=== PATIENT | male | born 1965 | race Caucasian/White ===

== ENCOUNTER 2019-04-01 10:56 | Emergency (ER) | payer OTHER ==
[2019-04-01] MEDS ORDERED: Bacitracin Oint 1 GM U/D Packet TOP ONE (12:39)
--- NOTE | 2019-04-01 12:44 | EDM.PDOC ---
ED HPI GENERAL MEDICAL PROBLEM - General Chief Complaint: Laceration Stated Complaint: LACERATION ON LEFT HAND Time Seen by Provider: 04/01/19 12:40 Source of Information: Reports: Patient History Limitations: Reports: No Limitations - History of Present Illness INITIAL COMMENTS - FREE TEXT/NARRATIVE: pt was opening a can of beans and ended up with a cut in the thumb web of his left hand. He ended up with a 1.25 inches laceration between the thumb and the next finger. Onset: Today, Sudden Duration: Hour(s): Location: Reports: Upper Extremity, Left Associated Symptoms: Reports: No Other Symptoms - Related Data Allergies Allergy/AdvReac Type Severity Reaction Status Date / Time No Known Allergies Allergy Verified 02/29/16 12:46 Home Meds: Home Meds Lisinopril 1 tab PO DAILY 02/29/16 [History] Past Medical History Cardiovascular History: Reports: Hypertension Musculoskeletal History: Reports: Fracture - Past Surgical History HEENT Surgical History: Reports: Tonsillectomy ED ROS GENERAL - Review of Systems Review Of Systems: See Below Constitutional: Reports: No Symptoms HEENT: Reports: No Symptoms Respiratory: Reports: No Symptoms Cardiovascular: Reports: No Symptoms Endocrine: Reports: No Symptoms GI/Abdominal: Reports: No Symptoms : Reports: No Symptoms Musculoskeletal: Reports: Other (laceration between the left thumb and the next finger. ) Skin: Reports: No Symptoms Neurological: Reports: No Symptoms Psychiatric: Reports: No Symptoms ED EXAM, SKIN/RASH Exam: See Below Text/Narrative:: pt arrived with a 1.25 laceration between the left thumb and the next finger. he is not current with his tetanus. Exam Limited By: No Limitations General Appearance: Alert, Anxious, Mild Distress Ears: Normal TMs Nose: Normal Inspection Throat/Mouth: Normal Inspection Head: Atraumatic Neck: Normal Inspection Extremities: Other (pt hs a 1.25 laceration between the left thumb and the next finger. He has normal sensation and normal motion. There is some bleeding. He was given a tetanus booster. ) Neurological: Alert, Oriented, Normal Cognition Course - Vital Signs Last Recorded V/S: Last Vital Signs Temp 35.2 C L 04/01/19 13:06 Pulse 68 04/01/19 13:06 Resp 18 04/01/19 13:06 BP 137/89 04/01/19 13:06 Pulse Ox 95 04/01/19 12:14 - Orders/Labs/Meds Meds: Medications Discontinued Medications Generic Name Dose Route Start Last Admin Trade Name Tanya PRN Reason Stop Dose Admin Bacitracin 1 dose 04/01/19 12:39 04/01/19 12:57 Bacitracin Oint 1 Gm TOP 04/01/19 12:40 1 dose ONETIME ONE Administration Diphtheria/Tetanus/Acell Pertussis 0.5 ml 04/01/19 13:17 04/01/19 13:24 Adacel IM 04/01/19 13:18 0.5 ml .ONCE ONE Administration Lidocaine HCl 5 ml 04/01/19 12:39 04/01/19 12:57 Xylocaine-Mpf 1% INJECT 04/01/19 12:40 5 ml ONETIME ONE Administration - Re-Assessments/Exams Free Text/Narrative Re-Assessment/Exam: 04/01/19 13:39 The wound was cleansed well and infiltrated with lidocaine. It was closed with 6-0 prolene. Bacatracin was applied and a pressure dressing was applied. He was given tetanus --tdap. Departure - Departure Time of Disposition: 13:15 Disposition: Home, Self-Care 01 Condition: Fair Clinical Impression: Laceration - Discharge Information Instructions: Laceration Care, Adult, [id number] Referrals: PCP,None [Primary Care Provider] - Forms: ED Department Discharge Care Plan Goals: leave pressure dressing on until tomorrow am then cover with a liter dry dressing. No further ointments, keep dry, suture removal in 7-8 days.
[2019-04-01 13:10] VITALS: BP 137/89; PULSE 68
[2019-04-01] MEDS ORDERED: Diphtheria,Pertussis(Acell),Tetanus Vaccine 0.5 ML SDV IM ONE (13:17)
== END 2019-04-01 13:43 | disposition home or self-care (01) ==
LOC: JP.ED 10:56
DX: S61.412A Laceration without foreign body of left hand, initial encounter (principal); W26.8XXA Contact with other sharp object(s), not elsewhere classified, initial encounter; Z23 Encounter for immunization; I10 Essential (primary) hypertension; Z79.899 Other long term (current) drug therapy
CPT/HCPCS: 12002; 90471; 90715; 99282; J2001